=== PATIENT | male | born 1995 | race Caucasian/White ===

== ENCOUNTER 2019-01-19 05:58 | Emergency (ER) | payer OTHER ==
[~2019-01-19] VITALS: Ht 175.3 cm; Wt 58.1 kg
[2019-01-19 06:08] VITALS: Ht 175.3 cm; Wt 58.1 kg
[2019-01-19 07:06] VITALS: BP 113/72
[2019-01-19 07:10] LABS: BASOPHIL % 0.8 % (0-2); PLATELET COUNT 304 x10^3mcL (130-400); RED CELL DISTRIBUTION WIDTH 12.5 % (11.5-14.5)
[2019-01-19 07:30] LABS: CALCIUM 9.3 mg/dL (8.5-10.1); CARBON DIOXIDE 27.4 mmol/L (21-32); CHLORIDE SERUM 105 mmol/L (98-107); CREATININE SERUM 0.9 mg/dL (0.7-1.3); GFR1 > 60 mL/min; GLUCOSE SERUM 99 mg/dL (74-106); POTASSIUM SERUM 3.9 mmol/L (3.5-5.1); SODIUM SERUM 142 mmol/L (136-145)
[2019-01-19 07:34] LABS: ALBUMIN 4.6 g/dL (3.4-5.0); ALKALINE PHOSPHATASE 60 U/L (46-116); ALT/SGPT 17 U/L (16-63); AST/SGOT 19 U/L (15-37); BILIRUBIN TOTAL 0.92 mg/dL (0.20-1.00); CHOLESTEROL 119 mg/dL (<200); CHOLESTEROL/HDL RATIO 1.8; HDL CHOLESTEROL 68 mg/dL (40-60); LIPASE 167 IU/L (73-393); TOTAL PROTEIN, SERUM 7.9 g/dL (6.4-8.2); TRIGLYCERIDES 26 mg/dL (<150)
[2019-01-19 07:48] LABS: T3 TOTAL 1.77 ng/mL
[2019-01-19 08:01] LABS: FREE T4 1.16 ng/dL (0.76-1.46); FREE THYROXINE INDEX 3.2 ug/dL (1.4-4.5); T4(THYROXINE) 8.3 ug/dL (4.7-13.3)
== END 2019-01-19 08:10 | disposition home or self-care (01) ==
LOC: ED 05:58
PROVIDERS: Specialist
DX: R07.89 Other chest pain (principal); F14.10 Cocaine abuse, uncomplicated; R10.13 Epigastric pain; M79.602 Pain in left arm
CPT/HCPCS: 36415; 83880; 84439; J2060